=== PATIENT | male | born 1960 | race Caucasian/White ===

== ENCOUNTER 2018-02-13 06:12 | Day surgery (SDC) | payer OTHER ==
[2018-02-13] MEDS ORDERED: Lactated Ringers 1,000 ML IV SCH (07:00)
[2018-02-13] MEDS ORDERED: Midazolam 1 MG/ML 2 ML SDV ONE (07:18)
[2018-02-13] MEDS ORDERED: fentaNYL 100 MCG/2 ML SDV ONE (07:18)
[2018-02-13] MEDS ORDERED: Propofol 200 MG/20 ML SDV ONE ×2 (07:18→07:52)
[2018-02-13] MEDS ORDERED: Ampicillin 2 GM in Sodium Chloride 0.9% 100 ML IV ONE (07:45)
--- NOTE | 2018-02-13 11:31 | OR ---
DATE OF PROCEDURE: 02/13/2018 PREOPERATIVE DIAGNOSIS: Colon cancer screening. POSTOPERATIVE DIAGNOSIS: Small rectal polyp. PROCEDURE: Colonoscopy to the cecum with biopsy resection of a small rectal polyp. SURGEON: Keven Goddard MD. ANESTHESIA: IV anesthesia with monitored anesthesia care. INDICATION: This 57-year-old white male is referred for a colonoscopy for colon cancer screening. He has never had a colonoscopic exam. I counseled him for the procedure including the risks and alternatives, and he gave his informed consent to proceed. DESCRIPTION OF PROCEDURE: The patient was placed in the left lateral decubitus position. IV anesthesia was administered by the Anesthesia Service. Time-out was held. A rectal exam was performed, which was unremarkable. The flexible video Olympus colonoscope was introduced through his anus, up his rectum, and out his colon all the way to the cecum. Once the cecum was reached, the scope was slowly withdrawn, examining the mucosa throughout. No mucosal abnormalities noted until we reached the rectum. Here, a small polyp was seen, which was removed with a single bite of the biopsy forceps. The scope was retroflexed in the rectum with the distal rectum appearing unremarkable. The scope was straightened and removed. He tolerated the procedure well. Kveen Goddard MD /[id number]
== END 2018-02-13 09:39 | disposition home or self-care (01) ==
LOC: JP.SDS 06:12
PROVIDERS: ATTEND Surgery
DX: Z12.11 Encounter for screening for malignant neoplasm of colon (principal); K62.1 Rectal polyp; G47.33 Obstructive sleep apnea (adult) (pediatric); I10 Essential (primary) hypertension
CPT/HCPCS: 45380; 88305; J0290; J2250; J2704; J3010; J7030; J7120